=== PATIENT | female | born 1955 | race Caucasian/White ===

== ENCOUNTER 2022-04-15 13:22 | Outpatient (CLI) | payer MEDICARE, BC, SELFPAY ==
[2022-04-15 22:31] LABS: Clue Cells <20% Clue Cells Seen (None Seen); Trichomonas No Trichomonas Seen (None Seen); Yeast No Yeast Seen (None Seen)
== END 2022-04-15 13:23 | disposition home or self-care (01) ==
PROVIDERS: PCP Nurse Practitioner Family; Visit Provider Nurse Practitioner Family
DX: R10.2 Pelvic and perineal pain (principal)
CPT/HCPCS: 87070; 87210

== ENCOUNTER 2022-07-23 10:42 | Outpatient (CLI) | payer MEDICARE, BC, SELFPAY ==
[2022-07-23 13:59] LABS: Basophils Percent Auto 1.1 % (0.0-3.0); Eosinophils Percent Auto 2.2 % (0.0-7.0); Hematocrit 40.6 % (33.0-51.0); Hemoglobin* 13.1 gm/dL (12.0-16.0); Lymphocytes Percent Auto 24.8 % (20-44); Mean Corpuscular HGB Conc 32 gm/dL (32-36); Mean Corpuscular Hemoglobin 32 pg (26-34); Mean Corpuscular Volume 100 fL (80-100); Monocytes Percent Auto 9.3 % (0.0-11.0); Neutrophils Percent Auto 62.6 % (42.0-72.0); Platelet Count* 160 K/uL (140-440); RDW Coefficient of Variation % 12.8 % (11.5-15.5); Red Blood Count 4.06 m/uL (4.00-5.20); White Blood Count* 3.67 K/uL (4.50-11.00)
[2022-07-23 14:06] LABS: Slide Review Reflex No
== END 2022-07-23 10:43 | disposition home or self-care (01) ==
PROVIDERS: PCP Nurse Practitioner Family; Visit Provider Nurse Practitioner Family
DX: Z13.0 Encounter for screening for diseases of the blood and blood-forming organs and certain disorders involving the immune mechanism (principal)
CPT/HCPCS: 85025

== ENCOUNTER 2023-03-06 13:16 | Outpatient (CLI) | payer MEDICARE, BC, SELFPAY | END 2023-03-06 13:17 | disposition home or self-care (01) | PROVIDERS: PCP Nurse Practitioner Family; Visit Provider Nurse Practitioner Family | DX: I10 Essential (primary) hypertension (principal); R00.2 Palpitations; Z51.81 Encounter for therapeutic drug level monitoring; Z79.01 Long term (current) use of anticoagulants | CPT/HCPCS: 80048; 84443; 85025 ==

== ENCOUNTER 2023-05-06 10:53 | Outpatient (CLI) | payer MEDICARE, BC, SELFPAY | END 2023-05-06 10:54 | disposition home or self-care (01) | LOC: KYNREF 10:53 | PROVIDERS: PCP Nurse Practitioner Family; Visit Provider Nurse Practitioner Family | DX: L08.9 Local infection of the skin and subcutaneous tissue, unspecified (principal) | CPT/HCPCS: 87070; 87077; 87186 ==

== ENCOUNTER 2023-11-04 17:41 | Emergency (ER) | payer MEDICARE, BC, SELFPAY ==
[2023-11-04 17:46] VITALS: BP 120/80; PULSE 110; RESP 20; TEMP 37.2; O2SAT 98; BMI 39.0
--- NOTE | 2023-11-04 17:52 | ED_ITS ---
HPI - General Adult General Chief complaint: Shortness of Breath/Dyspnea Stated complaint: Possible blood clot Time Seen by Provider: 11/04/23 17:47 History of Present Illness HPI narrative: Pt reports feeling unwell since last friday. Has had headache, nausea, diarrhea, SOB, exhaustion. UC sent here due to c/o blood clot. Hx of aortic aneurysm and leaky heart valve. 68-year-old woman presenting to the emergency department from urgent care with concern of potential blood clot. Has been feeling not well for the last for 5 days. Return to little over week ago I believe driving from [place]. She does acknowledge some lower extremity swelling but this is not necessarily unusual and is not experiencing any pain. She has been having bitemporal headache. Intermittently nauseated. Has had diarrhea. She feels generally short of breath and just quite fatigued. Remote smoking history. Evidence than on physical exam does have a history of surgery for brain tumor; sounds like this is a meningioma and does have another 1 that is being monitored. She does not think that this headache is related to that. Does acknowledge a history of anemia of unclear etiology she says but says that they use to give her shots of iron. Does have a history of aortic valve replacement. She has not had cough or cold symptoms. Denies sick contacts. No fever though then mentions that had a ?fever? on presentation to urgent care today. Arrives here at 98.9. Noticing bilateral anterior knee scars on exam consistent with total knee replacements she says that she is anticipating more revisions. Reviewing records I can see in urgent care that she did have urinalysis done s howing 1+ protein 1+ ketones 2-5 red cells 2-5 white cells on microscopic. No nitrite or leukocyte esterase were evident however. Few bacteria Two-view chest was also done at urgent care. I review these images Postoperative changes are noted. Do not see an effusion. Some mild cephalization. Related Data Home Medications ?Medication ?Instructions ?Recorded ?Confirmed aspirin 81 mg chewable tablet 81 mg PO QDAY 04/15/22 11/18/23 cholecalciferol (vitamin D3) 50 50 mcg PO QDAY 04/15/22 11/18/23 mcg (2,000 unit) capsule docusate sodium 100 mg capsule 100 mg PO QDAY PRN 04/15/22 11/18/23 (Colace) magnesium 250 mg tablet 500 mg PO QDAY 04/15/22 11/18/23 mecobalamin (vitamin B12) 1,000 1,000 mcg PO QDAY 04/15/22 11/18/23 mcg chewable tablet potassium citrate 99 mg capsule 99 mg PO 04/15/22 11/18/23 Super collagen 12 mg PO 07/23/22 11/18/23 folic acid 400 mcg tablet 0.8 mg PO QDAY 10/28/22 11/18/23 nitroglycerin 0.4 mg sublingual 0.4 mg sublingual Q5M PRN 10/28/22 11/18/23 tablet (Nitrostat) sennosides 8.6 mg tablet (Senokot) 17.2 mg PO QDAY 10/28/22 11/18/23 Previous Rx's ?Medication ?Instructions ?Recorded eszopiclone 2 mg tablet (Lunesta) 2 mg PO QHS PRN insomnia 90 days 04/10/23 #90 tabs trazodone 100 mg tablet 200 mg (2 x 100 mg) PO QDAY #180 06/19/23 tabs atorvastatin 80 mg tablet 80 mg PO QHS #90 tabs 06/26/23 meloxicam 15 mg tablet 15 mg PO QDAY #90 tabs 08/07/23 topiramate 100 mg tablet 100 mg PO QDAY #90 tabs 08/18/23 metoprolol tartrate 100 mg tablet 100 mg PO BID 90 days #180 tabs 08/29/23 (Lopressor) peg 3350-electrolytes 236 240 ml PO Q10M #4,000 mL 09/23/23 gram-22.74 gram-6.74 gram-5.86 gram solution (Golytely) furosemide 20 mg tablet 40 mg (2 x 20 mg) PO QDAY #180 tabs 10/15/23 cyclobenzaprine 5 mg tablet 5 mg PO TID PRN muscle spasm #30 11/18/23 tabs Allergies Allergy/AdvReac Type Severity Reaction Status Date / Time sulfamethoxazole Allergy Verified 11/18/23 14:17 [From Bactrim] trimethoprim [From Bactrim] Allergy Verified 11/18/23 14:17 Review of Systems Status of ROS: Reports: 6 or more systems reviewed and unremarkable except as noted in History and below [facility] Medical History (Updated 11/20/23 @ 06:34 by Sangeeta Ledesma APRN, SHERIFF'S SERGEANT) Celiac disease ?K90.0 - Celiac disease (ICD-10) Hyperlipidemia ?E78.5 - Hyperlipidemia, unspecified (ICD-10) Palpitations ?R00.2 - Palpitations (ICD-10) Post-operative nausea and vomiting ?R11.2 - Nausea with vomiting, unspecified (ICD-10) ?Z98.890 - Other specified postprocedural states (ICD-10) Aortic aneurysm ?I71.9 - Aortic aneurysm of unspecified site, without rupture (ICD-10) History of cystocele ?Z87.448 - Personal history of other diseases of urinary system (ICD-10) Surgical History (Updated 11/20/23 @ 06:34 by Sangeeta Ledesma APRN, SHERIFF'S SERGEANT) History of tonsillectomy ?Z90.89 - Acquired absence of other organs (ICD-10) Aortic valve replaced ?Z95.2 - Presence of prosthetic heart valve (ICD-10) History of hemorrhoidectomy ?Z98.890 - Other specified postprocedural states (ICD-10) Hx of brain surgery ?Z98.890 - Other specified postprocedural states (ICD-10) History of left hip replacement ?Z96.642 - Presence of left artificial hip joint (ICD-10) History of salpingo-oophorectomy ?Z90.79 - Acquired absence of other genital organ(s) (ICD-10) ?Z90.721 - Acquired absence of ovaries, unilateral (ICD-10) History of cystoscopy ?Z98.890 - Other specified postprocedural states (ICD-10) Status post carpal tunnel release ?Z98.890 - Other specified postprocedural states (ICD-10) Status post hysterectomy ?Z90.710 - Acquired absence of both cervix and uterus (ICD-10) Status post total knee replacement ?Z96.659 - Presence of unspecified artificial knee joint (ICD-10) Family History Sister Anesthesia complication Breast cancer Aneurysm Rheumatoid arteritis Sleep apnea Grandmother Colon cancer Father Myocardial infarction Mother Heart failure Brother Stroke Sleep apnea Social History Smoking Status: Former smoker How often do you have a drink containing alcohol: 2-3 times a week How many standard drinks containing alcohol do you have on a typical day: 3 or 4 How often do you have six or more drinks on one occasion: Never AUDIT-C Alcohol total score: 4 Non-prescribed substance use: denies use Little interest or pleasure in doing things: several days Feeling down, depressed, or hopeless: more than half the days Exam Narrative: Exam Narrative: Pleasant. Does seem a little fatigued but answers questions easily quickly. She is breathing easily. Head is acutely atraumatic. She does have a hair piece and scars and changes to the calvarium consistent with surgical intervention. She has no pulsatile swelling at the temples. Pain is not really elicited to paracervical trapezial muscle palpation. Oropharynx is unremarkable in good repair. Neck is supple without JVD appreciated. Lungs with some clearing basilar crepitus. Breath sounds throughout. Heart in elevated rate and regular rhythm. Distant. Abdomen is overweight soft nontender. Lower extremities are generally a large but without pitting edema. Negative Homans. No pain. Const: Vital Signs, click to edit/add: Vital Signs - 24 hr 11/04/23 17:46 11/04/23 18:18 Temperature 98.9 F Pulse Rate [Pulse Oximeter] 110 H Respiratory Rate 20 Blood Pressure [Ri ght Upper Arm] 120/80 Pulse Oximetry 98 99 Oxygen Delivery Me thod Room Air Documenting provider has reviewed patient's vital signs: yes Course Vital Signs Vital signs: Initial Vital Signs Temperature 98.9 F 11/04/23 17:46 Temperature Source Oral 11/04/23 17:46 Pulse Rate 110 H 11/04/23 17:46 Respiratory Rate 20 11/04/23 17:46 Blood Pressure 120/80 11/04/23 17:46 Blood Pressure Mean 93 11/04/23 17:46 Blood Pressure Position Sitting 11/04/23 17:46 Pulse Oximetry 98 11/04/23 17:46 Oxygen Delivery Method Room Air 11/04/23 17:46 Vital Signs Temperature 98.9 F 11/04/23 17:46 Pulse Rate 110 H 11/04/23 17:46 Respiratory Rate 20 11/04/23 17:46 Blood Pressure 120/80 11/04/23 17:46 Pulse Oximetry 98 11/04/23 17:46 Oxygen Delivery Method Room Air 11/04/23 17:46 Temperature 98.9 F 11/04/23 17:46 Pulse Rate 110 H 11/04/23 17:46 Respiratory Rate 20 11/04/23 17:46 Blood Pressure 120/80 11/04/23 17:46 Pulse Oximetry 99 11/04/23 18:18 Oxygen Delivery Method Room Air 11/04/23 17:46 Medical Decision Making MDM Narrative Medical decision making narrative: Will need to obtain results of last echocardiogram. The fatigue I would think particularly with the diarrhea present probably from general illness unspecified at this point. Could be somewhat dehydrated. Ketones present in urine. Considering history would also want check for anemia or other electrolyte abnormalities with recent illness. I think less likely is pulmonary embolus. Symptoms do seem to be more global. Possible exacerbation of heart failure some degree. She does not feel she needs treatment for her headache at this point. Chest x-ray below from urgent care. Radiology over-read Study:?XRay-Chest -11/04/2023 4:43:20 PM Ordering Physician:?Sangita Singh Final Report: Indication: Fever, not feeling well Technique: Chest 2 views Comparison: None Findings/Impression: Cardiovascular and mediastinum: Normal heart size with aortic tortuosity. Status post valvular surgery. Lungs and pleural spaces: No pleural effusion or pneumothorax. Left lateral costophrenic angle not entirely included on the exam. Mild pulmonary cephalization. Bones and soft tissues: Status post median sternotomy. With porcine valve is no longer on anticoagulation. ProBNP of 398. D-dimer is low bit elevated at 0.89. She is not anemic. Chemistries are relatively normal. CRP those elevated at 4.5. I think more likely explanation for generalized fatigue is infectious. Does not appear to be in significant heart failure. Pending yet is triple swab. At this time she has agreed to go ahead and receive scan looking for potential pulmonary embolus. She has still been declining IV fluid resuscitation. Might be fluid down in light of recent copious diarrhea as described. This might be explanation for both elevated inflammatory markers and tachycardia. She maintains that has been taking her furosemide regularly and does a prescription of metoprolol tartrate 100 mg b.i.d. Study:?CT-Chest PE STUDY-11/04/2023 9:17:56 PM Ordering Physician:ARACELI Final Report: INDICATION: Tachycardia. TECHNIQUE: CT chest PE was acquired with 95 cc Isovue 370 IV contrast. COMPARISON: Same day chest radiographs. FINDINGS: Heart and vasculature: Contrast opacification of the pulmonary arterial tree is adequate. No sign of pulmonary embolism. Heart size is normal. Thoracic aorta is normal in caliber. Enlarged main pulmonary artery measuring 3.3 cm. Postsurgical changes of median sternotomy and AVR. Mild coronary artery calcifications. Lungs and pleura: Lungs and pleural spaces are clear. No suspicious nodules or infiltrates. No pleural effusions, pleural thickening, or pneumothorax. Lymph nodes/mediastinum: No mediastinal, hilar, or axillary adenopathy. Thyroid gland is unremarkable. Chest wall: No masses. Upper abdomen: Tiny hiatal hernia. Small hepatic cysts. Bones: Degenerative changes. IMPRESSION: 1. No evidence of pulmonary embolism or acute intrathoracic abnormality. 2. Enlarged main pulmonary artery, suggestive of underlying pulmonary hypertension. CT imaging was reviewed by me. Overall would appear to be reassuring at least from acute perspective; no pneumonia or pulmonary embolus. See patient discharge plan for further discussion/plan Medical Records Medical records reviewed: Yes I reviewed the patient's medical records Lab Data Lab results reviewed: Yes I reviewed the patient's lab results Labs: Lab Results 11/04/23 Range/Units 18:38 WBC 3.57 L (4.50-11.00) K/uL RBC 3.86 L (4.00-5.20) m/uL Hgb 12.1 (12.0-16.0) gm/dL Hct 37.6 (33.0-51.0) % MCV 97 (80-100) fL MCH 31 (26-34) pg MCHC 32 (32-36) gm/dL RDW Coeff of Mauro 12.7 (11.5-15.5) % Plt Count 104 L (140-440) K/uL Neut % (Auto) 77.8 H (42.0-72.0) % Lymph % (Auto) 11.5 L (20-44) % Bailey % (Auto) 10.4 (0.0-11.0) % Eos % (Auto) 0.0 (0.0-7.0) % Baso % (Auto) 0.3 (0.0-3.0) % Neut # (Auto) 2.80 (1.7-7.0) K/uL Lymph # (Auto) 0.40 L (0.90-2.90) K/uL Bailey # (Auto) 0.40 (0.00-0.90) K/UL Eos # (Auto) 0.00 (0.00-0.50) K/uL Baso # (Auto) 0.00 (0.00-0.30) K/uL Abs Immat Gran (auto) 0.00 (0.00-0.30) K/uL Imm/Tot Granulo (auto) 0.0 % D-Dimer Quant (PE/DVT) 0.89 H (0.00-0.50) ug/ml Sodium 133 L (135-149) mmol/L Potassium 3.6 (3.6-5.1) mmol/L Chloride 104 (96-114) mmol/L Carbon Dioxide 24 (20-32) mmol/L Anion Gap 5 L (7-15) mEq/L BUN 17 (7-30) mg/dL Creatinine 0.7 (0.5-1.5) mg/dL Estimated Creat Clear 43.30 Estimated GFR 93 ml/min Glucose 97 (60-115) mg/dL Calcium 8.2 L (8.4-10.6) mg/dL Magnesium 2.1 (1.5-2.6) mg/dL Total Bilirubin 0.8 (0.1-1.5) mg/dL Direct Bilirubin 0.5 (0.0-0.5) mg/dL AST 41 H (12-35) U/L ALT 33 (4-35) U/L Alkaline Phosphatase 86 (40-150) U/L Troponin I < 0.01 L (0.01-0.04) ng/mL C-Reactive Protein 4.5 H (0.5-1.0) mg/dL NT-Pro-B Natriuret Pep 398 pg/mL Total Protein 6.2 (6.0-8.3) g/dL Albumin 4.0 (3.3-5.0) g/dL TSH 0.934 (0.270-4.20) uIU/mL SARS-CoV-2 (PCR) Negative SARS-CoV-2 (Negative) Influenza Type A (PCR) Negative PCR FLU A (Negative) Influenza Type B (PCR) Negative PCR FLU B (Negative) RSV (PCR) Negative PCR RSV (Negative) ECG Data Attestation: I personally reviewed and interpreted this ECG as follows: (Sinus tachycardia at 103. Looks like there is 1 PVC.) Discharge Plan Discharge Clinical Impression: Diarrhea, Malaise and fatigue Patient Disposition: Home w/ Parent or Adult Condition: Stable Additional Instructions: Continue to hydrate. Return for worsening shortness of breath, persistent chest pain, associated fever. Please follow-up with your pediatric nephrologist as you discussed. Your heart rate has been over 100 for most of the time here. Should this be continuing over the next few days, be sure you let your primary and/or Cardiology know. Prescriptions: No Action sennosides [Senokot] 8.6 mg tablet 17.2 mg PO QDAY folic acid 400 mcg tablet 0.8 mg PO QDAY nitroglycerin [Nitrostat] 0.4 mg tablet, sublingual 0.4 mg sublingual Q5M PRN Rx Instructions: do not exceed 3 doses per episode eszopiclone [Lunesta] 2 mg tablet 2 mg PO QHS PRN (Reason: insomnia) 90 Days Qty: 90 3RF aspirin 81 mg tablet,chewable 81 mg PO QDAY cholecalciferol (vitamin D3) 50 mcg (2,000 unit) capsule 50 mcg PO QDAY mecobalamin (vitamin B12) 1,000 mcg tablet,chewable 1,000 mcg PO QDAY magnesium 250 mg tablet 500 mg PO QDAY potassium citrate 99 mg capsule 99 mg PO docusate sodium [Colace] 100 mg capsule 100 mg PO QDAY PRN Super collagen 12 mg PO cyclobenzaprine 5 mg tablet 5 mg PO TID PRN (Reason: muscle spasm) Qty: 30 0RF trazodone 100 mg tablet 200 mg PO QDAY Qty: 180 3RF atorvastatin 80 mg tablet 80 mg PO QHS Qty: 90 3RF meloxicam 15 mg tablet 15 mg PO QDAY Qty: 90 3RF topiramate 100 mg tablet 100 mg PO QDAY Qty: 90 3RF metoprolol tartrate [Lopressor] 100 mg tablet 100 mg PO BID 90 Days Qty: 180 1RF peg 3350-electrolytes [Golytely] 236-22.74-6.74 -5.86 gram recon soln 240 ml PO Q10M Qty: 4000 0RF Rx Instructions: until fecal effluent is clear furosemide 20 mg tablet 40 mg PO QDAY Qty: 180 3RF Follow Up/Referrals: Sangeeta Ledesma APRN, SHERIFF'S SERGEANT [Primary Care Provider] - Stand Alone Forms: Material Wrld Info Instructions
[2023-11-04 18:18] VITALS: O2SAT 99
[2023-11-04 18:51] LABS: Basophils Percent Auto 0.3 % (0.0-3.0); Hematocrit 37.6 % (33.0-51.0); Hemoglobin* 12.1 gm/dL (12.0-16.0); Lymphocytes Percent Auto 11.5 % (20-44); Mean Corpuscular HGB Conc 32 gm/dL (32-36); Mean Corpuscular Hemoglobin 31 pg (26-34); Mean Corpuscular Volume 97 fL (80-100); Monocytes Percent Auto 10.4 % (0.0-11.0); Neutrophils Percent Auto 77.8 % (42.0-72.0); Platelet Count* 104 K/uL (140-440); RDW Coefficient of Variation % 12.7 % (11.5-15.5); Red Blood Count 3.86 m/uL (4.00-5.20); White Blood Count* 3.57 K/uL (4.50-11.00)
[2023-11-04 19:05] LABS: Slide Review Reflex No
[2023-11-04 19:12] LABS: Chloride* 104 mmol/L (96-114); Potassium* 3.6 mmol/L (3.6-5.1); Sodium* 133 mmol/L (135-149)
[2023-11-04 19:15] LABS: Anion Gap 5 mEq/L (7-15); Blood Urea Nitrogen* 17 mg/dL (7-30); Carbon Dioxide* 24 mmol/L (20-32); Creatinine* 0.7 mg/dL (0.5-1.5); Estimated Glomerular Filt Rate 93 ml/min
[2023-11-04 19:16] LABS: Alkaline Phosphatase* 86 U/L (40-150); Aspartate Amino Transferase* 41 U/L (12-35); Bilirubin Direct* 0.5 mg/dL (0.0-0.5); Bilirubin Total* 0.8 mg/dL (0.1-1.5); Calcium* 8.2 mg/dL (8.4-10.6); Glucose* 97 mg/dL (60-115); Magnesium* 2.1 mg/dL (1.5-2.6); Total Protein* 6.2 g/dL (6.0-8.3)
[2023-11-04 19:17] LABS: Alanine Aminotransferase* 33 U/L (4-35)
[2023-11-04 19:18] LABS: C Reactive Protein* 4.5 mg/dL (0.5-1.0)
[2023-11-04 19:20] LABS: D Dimer Quantitative* 0.89 ug/ml (0.00-0.50)
[2023-11-04 19:26] LABS: NT Pro B Type NatriureticPept* 398 pg/mL
[2023-11-04 19:28] LABS: PCR FLU A Negative PCR FLU A (Negative); PCR FLU B Negative PCR FLU B (Negative); PCR RSV Negative PCR RSV (Negative); SARS PCR* Negative SARS-CoV-2 (Negative)
[2023-11-04 19:29] LABS: Troponin I* < 0.01 ng/mL (0.01-0.04)
[2023-11-04 19:48] LABS: Thyroid Stimulating Hormone* 0.934 uIU/mL (0.270-4.20)
--- NOTE | 2023-11-04 20:32 | CT_ITS ---
Patient: [place] Facility:?[facility] Patient ID:?[id number] Site Patient ID:?[id number] Site :?[id number] Study:?CT-Chest PE STUDY-11/04/2023 9:17:56 PM Ordering Physician:ARACELI Final Report: INDICATION: Tachycardia. TECHNIQUE: CT chest PE was acquired with 95 cc Isovue 370 IV contrast. COMPARISON: Same day chest radiographs. FINDINGS: Heart and vasculature: Contrast opacification of the pulmonary arterial tree is adequate. No sign of pulmonary embolism. Heart size is normal. Thoracic aorta is normal in caliber. Enlarged main pulmonary artery measuring 3.3 cm. Postsurgical changes of median sternotomy and AVR. Mild coronary artery calcifications. Lungs and pleura: Lungs and pleural spaces are clear. No suspicious nodules or infiltrates. No pleural effusions, pleural thickening, or pneumothorax. Lymph nodes/mediastinum: No mediastinal, hilar, or axillary adenopathy. Thyroid gland is unremarkable. Chest wall: No masses. Upper abdomen: Tiny hiatal hernia. Small hepatic cysts. Bones: Degenerative changes. IMPRESSION: 1. No evidence of pulmonary embolism or acute intrathoracic abnormality. 2. Enlarged main pulmonary artery, suggestive of underlying pulmonary hypertension. Please note that all CT scans at this facility use dose modulation, iterative reconstruction, and/or weight-based dosing when appropriate to reduce radiation dose to as low as reasonably achievable. Dictated by Toni Garner MD @ 11/04/2023 9:40:12 PM Signed by:?Toni Garner MD @11/04/2023 9:40:12 PM (Electronic Signature)
== END 2023-11-04 21:52 | disposition home or self-care (01) ==
PROVIDERS: Emergency Provider Family Medicine; PCP Nurse Practitioner Family
DX: R53.83 Other fatigue (principal); R53.81 Other malaise
CPT/HCPCS: 36415; 71275; 80048; 80076; 81001; 83735; 83880; 84443; 84484; 85025; 85379; 86140; 87086; 87631; 93005; 94761; 99284; 99285; Q9967

== ENCOUNTER 2023-11-18 14:43 | Outpatient (CLI) | payer MEDICARE, BC, SELFPAY | END 2023-11-18 14:44 | disposition home or self-care (01) | PROVIDERS: PCP Nurse Practitioner Family; Visit Provider Nurse Practitioner Family | DX: R50.9 Fever, unspecified (principal) | CPT/HCPCS: 87040; 87077 ==

== ENCOUNTER 2024-01-29 11:56 | Outpatient (CLI) | payer MEDICARE, BC, SELFPAY ==
--- NOTE | 2024-01-29 12:54 | W.ANESCHARGE ---
Anesthesia Charges Start Date/Time Anesthesia Start Date: 01/29/24 Anesthesia Start Time: 13:25 Stop Date/Time Anesthesia Stop Date: 01/29/24 Anesthesia Stop Time: 14:35 Summary Extremes of Age - Over 70 or under 1: MDA
--- NOTE | 2024-01-29 13:56 | P.ANES_ITS ---
Anesthesia Charges Start Date/Time Anesthesia Start Date: 01/29/24 Anesthesia Start Time: 13:25 Stop Date/Time Anesthesia Stop Date: 01/29/24 Anesthesia Stop Time: 14:35 Summary Extremes of Age - Over 70 or under 1: FERRYBOAT OPERATOR CABLE
== END 2024-01-29 11:57 | disposition home or self-care (01) ==
LOC: OP CLINIC 11:56
PROVIDERS: PCP Nurse Practitioner Family; Visit Provider Surgery
DX: Z12.11 Encounter for screening for malignant neoplasm of colon (principal); K62.5 Hemorrhage of anus and rectum; K64.9 Unspecified hemorrhoids; K57.30 Diverticulosis of large intestine without perforation or abscess without bleeding; Z86.010 Personal history of colon polyps; K44.9 Diaphragmatic hernia without obstruction or gangrene; K31.89 Other diseases of stomach and duodenum; Z87.19 Personal history of other diseases of the digestive system
CPT/HCPCS: 00813; 43239; 45381; 45385; 88305; 99100; J2704

== ENCOUNTER 2024-05-06 10:37 | Outpatient (CLI) | payer MEDICARE, BC, SELFPAY | END 2024-05-06 10:38 | disposition home or self-care (01) | PROVIDERS: PCP Nurse Practitioner Family; Visit Provider Nurse Practitioner Family | DX: D64.9 Anemia, unspecified (principal); E78.5 Hyperlipidemia, unspecified; I11.0 Hypertensive heart disease with heart failure | CPT/HCPCS: 82728; 85025 ==

== ENCOUNTER 2024-08-02 10:22 | Outpatient (CLI) | payer MEDICARE, BC, SELFPAY | END 2024-08-02 10:23 | disposition home or self-care (01) | PROVIDERS: PCP Nurse Practitioner Family; Visit Provider Nurse Practitioner Family | DX: I10 Essential (primary) hypertension (principal); E78.5 Hyperlipidemia, unspecified; Z13.0 Encounter for screening for diseases of the blood and blood-forming organs and certain disorders involving the immune mechanism | CPT/HCPCS: 80053; 80061; 85025 ==

== ENCOUNTER 2024-11-30 13:56 | Outpatient (CLI) | payer MEDICARE, BC, SELFPAY | END 2024-11-30 13:57 | disposition home or self-care (01) | PROVIDERS: PCP Nurse Practitioner Family; Visit Provider Nurse Practitioner Family | DX: R60.0 Localized edema (principal); R06.00 Dyspnea, unspecified; I11.0 Hypertensive heart disease with heart failure; I50.9 Heart failure, unspecified; I25.10 Atherosclerotic heart disease of native coronary artery without angina pectoris; E78.5 Hyperlipidemia, unspecified | CPT/HCPCS: 80048; 83880 ==

== ENCOUNTER 2025-02-01 06:56 | Outpatient (CLI) | payer MEDICARE, BC, SELFPAY ==
--- NOTE | 2025-02-01 08:46 | P.ANES_ITS ---
Anesthesia Charges Start Date/Time Anesthesia Start Date: 02/01/25 Anesthesia Start Time: 07:56 Stop Date/Time Anesthesia Stop Date: 02/01/25 Anesthesia Stop Time: 08:44 Summary Extremes of Age - Over 70 or under 1: TRANSPORTATION DISPATCHER Coding CPT Codes CPT Codes: ANES LWR INTST NDSC NOS - 10849 ([id number]) P3 - PATIENT W/SEVERE SYS DISEASE, QK - STRUCTURAL WELDER 2-4 CNCRNT ANES PROC, QX - TRANSPORTATION DISPATCHER SVC W/ MD MED DIRECTION Additional Codes: Summary - Extremes of Age - Over 70 or under 1: TRANSPORTATION DISPATCHER ([id number])
--- NOTE | 2025-02-01 08:46 | W.ANESCHARGE ---
Anesthesia Charges Start Date/Time Anesthesia Start Date: 02/01/25 Anesthesia Start Time: 07:56 Stop Date/Time Anesthesia Stop Date: 02/01/25 Anesthesia Stop Time: 08:44 Summary Extremes of Age - Over 70 or under 1: SPARK TESTER Coding CPT Codes CPT Codes: ANES LWR INTST NDSC NOS - 71272 ([id number]) P3 - PATIENT W/SEVERE SYS DISEASE, QK - PATTERN MAKER 2-4 CNCRNT ANES PROC, QX - SPARK TESTER SVC W/ MD MED DIRECTION Additional Codes: Summary - Extremes of Age - Over 70 or under 1: SPARK TESTER ([id number])
--- NOTE | 2025-02-01 09:21 | P.ANES_ITS ---
Anesthesia Charges Start Date/Time Anesthesia Start Date: 02/01/25 Anesthesia Start Time: 07:56 Stop Date/Time Anesthesia Stop Date: 02/01/25 Anesthesia Stop Time: 08:44 Summary Extremes of Age - Over 70 or under 1: MDA Coding CPT Codes CPT Codes: ANES LWR INTST NDSC NOS - 71032 ([id number]) QK - AIRCRAFT RIGGING AND CONTROLS MECHANIC 2-4 CNCRNT ANES PROC, QX - HIDE DROPPER SVC W/ MD MED DIRECTION, P3 - PATIENT W/SEVERE SYS DISEASE Additional Codes: Summary - Extremes of Age - Over 70 or under 1: MDA ([id number])
== END 2025-02-01 06:57 | disposition home or self-care (01) ==
LOC: OP CLINIC 06:57
PROVIDERS: PCP Nurse Practitioner Family; Visit Provider Surgery
DX: Z12.11 Encounter for screening for malignant neoplasm of colon (principal); Z86.0101 Personal history of adenomatous and serrated colon polyps; K60.30 Anal fistula, unspecified; D12.2 Benign neoplasm of ascending colon; D12.3 Benign neoplasm of transverse colon; D12.4 Benign neoplasm of descending colon; D12.5 Benign neoplasm of sigmoid colon
CPT/HCPCS: 00811; 45385; 88305; 99100; J2704

== ENCOUNTER 2025-03-08 07:56 | Outpatient (CLI) | payer MEDICARE, BC, SELFPAY ==
--- NOTE | 2025-03-08 08:15 | CRLHL7_ITS ---
For Patients: As a result of the Century Cures Act, medical imaging exams and procedure reports are released immediately into your electronic medical record. You may view this report before your referring provider. If you have questions, please contact your health care provider. INDICATION: Rectal fistula. COMPARISON: None. TECHNIQUE: MRI of the pelvis without and with intravenous contrast; precontrast T1 and T2 weighted imaging; T2 haste imaging; diffusion-weighted imaging; in and out of phase imaging; postcontrast imaging in axial, coronal and sagittal projections; 20 cc Dotarem contrast was injected IV. FINDINGS: If fistula identified from the rectum extending into the perineum (slice 47 through 55 series 17). No perirectal inflammatory changes. No pelvic abscess. No abnormal pelvic lymphadenopathy. No abnormal fluid collections identified within the pelvis. IMPRESSION: 1. 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 2. No perirectal inflammatory changes on pelvic abscess. Dictated by Richa Alvarado MD @ 03/09/2025 12:17:02 PM (Electronically Signed)
== END 2025-03-08 07:57 | disposition home or self-care (01) ==
LOC: MRI 07:57
PROVIDERS: PCP Nurse Practitioner Family; Visit Provider Surgery
DX: K60.40 Rectal fistula, unspecified (principal)
CPT/HCPCS: 72197; A9575

== ENCOUNTER 2025-04-15 13:53 | Outpatient (CLI) | payer MEDICARE, BC, SELFPAY | END 2025-04-15 13:54 | disposition home or self-care (01) | PROVIDERS: PCP Nurse Practitioner Family; Visit Provider Nurse Practitioner Family | DX: R00.2 Palpitations (principal) | CPT/HCPCS: 80053; 83735; 84443; 85025 ==

== ENCOUNTER 2025-06-14 10:11 | Outpatient (CLI) | payer MEDICARE, BC, SELFPAY | END 2025-06-14 10:12 | disposition home or self-care (01) | PROVIDERS: PCP Nurse Practitioner Family; Visit Provider Nurse Practitioner Family | DX: Z01.818 Encounter for other preprocedural examination (principal) | CPT/HCPCS: 80053; 85025 ==